=== PATIENT | male | born 1945 | race Caucasian/White ===

== ENCOUNTER 2019-03-27 02:32 | Outpatient (CLI) | payer MEDICARE, OTHER ==
[~2019-03-27 02:32] MED LIST: ALLO100T PO; COU5T PO; DILT240C90 PO; LISI10TA4 PO; METF1000 PO; MULT-1141 PO; WARF2.5T82 PO; [UNRECOGNIZED DRUG - OTHER] TP
== END 2019-03-27 23:59 | disposition home or self-care (01) ==
LOC: DIABETIC 02:32
PROVIDERS: ATTEND Nurse Practitioner Family
DX: E11.9 Type 2 diabetes mellitus without complications (principal); Z79.84 Long term (current) use of oral hypoglycemic drugs
CPT/HCPCS: G0108

== ENCOUNTER 2019-05-21 04:17 | Outpatient (CLI) | payer MEDICARE, OTHER | END 2019-05-21 23:59 | disposition home or self-care (01) | LOC: DIABETIC 04:17 | PROVIDERS: ATTEND Nurse Practitioner Family | DX: E11.9 Type 2 diabetes mellitus without complications (principal); E66.9 Obesity, unspecified; E11.40 Type 2 diabetes mellitus with diabetic neuropathy, unspecified; G47.33 Obstructive sleep apnea (adult) (pediatric) | CPT/HCPCS: G0108 ==

== ENCOUNTER 2021-02-10 04:37 | Inpatient (IN) | payer MEDICARE, OTHER ==
[~2021-02-10] VITALS: Ht 182.9 cm; Wt 105.0 kg
[~2021-02-10 04:37] MED LIST changes: -COU5T PO; +FLO0.4C PO; +HYDR12.55 PO; +LISI10TA27 PO; -LISI10TA4 PO; -MULT-1141 PO; +WARF-113 PO; -WARF2.5T82 PO
[2021-02-10] MEDS ORDERED: iohexol 350MG/ML 100ml bottle IV ONE (05:53)
[2021-02-10] MEDS ORDERED: HYDROmorphone 1 mg/ml syringe IV ONE ×4 (05:55→08:30)
[2021-02-10 06:14] LABS: ALBUMIN 3.6 G/DL (3.4-5.0); ANION GAP 14 (8-16); BLOOD UREA NITROGEN 26 MG/DL (7-18); CALCIUM 9.4 MG/DL (8.5-10.1); CHLORIDE 105 MMOL/L (99-107); CREATININE 0.84 MG/DL (0.60-1.10); GLUCOSE 158 MG/DL (70-104); POTASSIUM 3.6 MMOL/L (3.5-5.1); SODIUM 142 MMOL/L (135-145); TOTAL CARBON DIOXIDE 23.1 MMOL/L (24-32); eGFR 89 ML/MIN
[2021-02-10 06:17] LABS: BASOPHILS % (AUTO) 0.3 % (0-1); EOSINOPHILS % (AUTO) 0.2 % (0-6); HEMATOCRIT 45.3 % (42.0-52.0); LYMPHOCYTES # (AUTO) 0.9 X10'3 (1.1-4.8); LYMPHOCYTES % (AUTO) 6.3 % (21-51); MEAN CORPUSCULAR VOLUME 87.8 FL (78-98); MEAN PLATELET VOLUME 8.9 FL (7.4-10.4); MONOCYTES # (AUTO) 1.1 X10'3 (0-0.9); MONOCYTES % (AUTO) 7.6 % (2-12); NEUTROPHILS # (AUTO) 12.7 X10'3 (1.8-7.7); NEUTROPHILS % (AUTO) 85.6 % (42-75); PARTIAL THROMBOPLASTIN TIME 25 SECONDS (22-32); PLATELET COUNT 192 X10'3 (140-440); RED BLOOD COUNT 5.16 X10'6 (4.70-6.10); RED CELL DISTRIBUTION WIDTH 16.3 % (11.5-14.5); WHITE BLOOD COUNT 14.9 X10'3 (4.5-11.0)
[2021-02-10] MEDS: MESSAGE TO NURSING PO NR ×2 (07:49→10:26)
[2021-02-10 08:21] LABS: CLARITY,URINE CLOUDY (Clear); COLOR,URINE YELLOW (Yellow); GLUCOSE, URINE NEGATIVE (Neg); KETONES,URINE TRACE mg/dl (Neg); LEUKOCYTE ESTERASE ,URINE SMALL (Neg); NITRITES, URINE NEGATIVE (Neg); OCCULT BLOOD,URINE SMALL (Neg); PROTEIN,URINE NEGATIVE (Neg); UROBILINOGEN,URINE 0.2 E.U/dL (0.2-1.0)
[2021-02-10 08:24] LABS: UA COLLECTION TYPE CLN CATCH MIDSTREAM
[2021-02-10 08:27] LABS: BACTERIA,URINE 1+ /HPF (Neg); MUCUS STRANDS FEW /LPF (Neg); SQUAMOUS EPITHELIAL CELL,UR FEW /LPF (FEW); TRANSITIONAL EPI CELLS,URINE FEW /HPF
[2021-02-10 08:28] LABS: WBC,URINE TNTC /HPF (0-4)
[2021-02-10 08:36] LABS: WBC CLUMPS,URINE FEW /HPF (NEGATIVE)
[2021-02-10] MEDS ORDERED: LORazepam 2 mg/ml vial IV ONE (08:40)
[2021-02-10] MEDS ORDERED: CefTRIAXone 2gm/D5W 50ml BAG 50 ML IV ONE (09:50)
[2021-02-10] MEDS ORDERED: ketorolac trometh. 30mg/ml inj. IV ONE (09:50)
--- NOTE | 2021-02-10 10:35 | NUR ---
Pt taken to MRI.
[2021-02-10] MEDS ORDERED: dexamethasone sod phosphate 10mg/ml inj IM STA ×2 (12:06→13:26)
[2021-02-10] MEDS ORDERED: TRAM50TA2 PO (12:29)
[2021-02-10] MEDS ORDERED: METF-438 PO (12:29)
[2021-02-10] MEDS ORDERED: DILT240C92 PO (12:29)
[2021-02-10] MEDS ORDERED: ALLO300T8 PO (12:29)
[2021-02-10] MEDS ORDERED: GADOTERATE MEGLUMINE 7.5 MMOL/15 ML VIAL IV ONE (14:07)
[2021-02-10] MEDS ORDERED: traMADol 50MG tablet PO PRN (14:25)
[2021-02-10] MEDS ORDERED: acetaminophen 325mg tablet PO PRN ×2 (14:30)
[2021-02-10] MEDS ORDERED: glucagon, human recombinant 1mg kit SUBCUT PRN (14:30)
[2021-02-10] MEDS ORDERED: dextrose 50%-water 50ml dispensing syringe IV PRN ×2 (14:30)
[2021-02-10] MEDS ORDERED: HYDROcodone/acetaminophen 10/325mg tab PO PRN (14:30)
[2021-02-10] MEDS ORDERED: MESSAGE TO PHARMACY PO ONE (14:30)
[2021-02-10] MEDS ORDERED: dextrose ORAL solution 15 GM/59 ML bottle PO PRN ×2 (14:30)
[2021-02-10] MEDS ORDERED: bisacodyl 10mg suppository rectal RC PRN (14:30)
[2021-02-10] MEDS ORDERED: morphine 2 MG/ML inj. syringe IV PRN (14:30)
[2021-02-10] MEDS ORDERED: mag hydrox/Alum hydrox/simeth 30ml oral suspension PO PRN (14:30)
[2021-02-10] MEDS ORDERED: ondansetron/PF 4mg/2ml inj IV PRN (14:30)
[2021-02-10] MEDS ORDERED: magnesium hydroxide 30ml (MOM) UD suspension PO PRN (14:30)
[2021-02-10] MEDS ORDERED: insulin Lispro (HumaLOG) vial - multi-dose SQ SCH (14:30)
[2021-02-10 14:57] LABS: HEMOGLOBIN A1C 6.5 % (4.5-6.2)
[2021-02-10] MEDS ORDERED: predniSONE 20 mg tablet PO SCH (17:40)
[2021-02-10] MEDS: insulin glargine (Lantus) pen - multi-dose SQ SCH (21:00)
[2021-02-10] MEDS ORDERED: warfarin 5mg tablet PO ONE (21:00)
[2021-02-10] MEDS: docusate sod 100mg capsule PO SCH (22:34)
[2021-02-10] MEDS: enoxaparin 100mg/ml syringe SUBCUT SCH (22:35)
[2021-02-10 23:54] VITALS: BP 177/99
--- NOTE | 2021-02-11 05:39 | NUR ---
patient has refused insulin overnight despite blood sugars of 223 and 182. Patient takes metformin at home and does not want to initiate insulin if discharging soon and reinitiating metformin after imaging with contrast. Educated patient regarding blood sugars, blood sugar treatments, and diet expectations.
[2021-02-11 06:10] LABS: BASOPHILS % (AUTO) 0.3 % (0-1); EOSINOPHILS % (AUTO) 0 % (0-6); HEMATOCRIT 46.4 % (42.0-52.0); HEMOGLOBIN 15.2 g/dl (14.0-17.9); LYMPHOCYTES # (AUTO) 0.7 X10'3 (1.1-4.8); LYMPHOCYTES % (AUTO) 4.7 % (21-51); MEAN CORPUSCULAR HEMOGLOBIN 29.1 PG (27.0-31.0); MEAN CORPUSCULAR HGB CONC 32.8 g/dL (33.0-36.5); MEAN CORPUSCULAR VOLUME 88.6 FL (78-98); MEAN PLATELET VOLUME 9.5 FL (7.4-10.4); MONOCYTES # (AUTO) 1.5 X10'3 (0-0.9); MONOCYTES % (AUTO) 9.6 % (2-12); NEUTROPHILS % (AUTO) 85.4 % (42-75); PLATELET COUNT 193 X10'3 (140-440); RED BLOOD COUNT 5.23 X10'6 (4.70-6.10); WHITE BLOOD COUNT 15.2 X10'3 (4.5-11.0)
--- NOTE | 2021-02-11 06:10 | NUR ---
Problems reprioritized. Patient report given, questions answered & plan of care reviewed with Erwin CARRILLO.
--- NOTE | 2021-02-11 06:18 | NUR ---
Patient in room [facility]. I have received report from Hira CARRILLO and had the opportunity to ask questions and assume patient care.
[2021-02-11] MEDS: morphine 2 MG/ML inj. syringe IV PRN ×2 (06:28→15:03)
[2021-02-11 06:36] LABS: ALBUMIN 3.4 G/DL (3.4-5.0); ANION GAP 11 (8-16); BLOOD UREA NITROGEN 17 MG/DL (7-18); BUN/CREATININE RATIO 21.8 (5.4-32.0); CALCIUM 10.1 MG/DL (8.5-10.1); CHLORIDE 105 MMOL/L (99-107); CREATININE 0.78 MG/DL (0.60-1.10); GLUCOSE 165 MG/DL (70-104); POTASSIUM 3.5 MMOL/L (3.5-5.1); SODIUM 139 MMOL/L (135-145); TOTAL CARBON DIOXIDE 23.2 MMOL/L (24-32); eGFR > 90 ML/MIN
[2021-02-11 07:00] VITALS: BP_SYST 130; BP_SYST 148; BP_DIAS 75; BP_DIAS 83
--- NOTE | 2021-02-11 07:00 | NUR ---
SN reported that patient's morning blood sugar was 166 mg/dl. Patient refused any insulin coverage when I asked him during my rounds to confirm this.
[2021-02-11] MEDS ORDERED: enoxaparin 40mg/0.4ml syringe SUBCUT SCH (08:00)
[2021-02-11] MEDS: diltiazem CD 120mg capsule (once-daily) PO SCH (08:21)
[2021-02-11] MEDS: docusate sod 100mg capsule PO SCH ×2 (08:22→21:45)
[2021-02-11] MEDS: predniSONE 20 mg tablet PO SCH (08:25)
[2021-02-11] MEDS: tamsulosin 0.4mg capsule PO SCH (08:26)
[2021-02-11] MEDS: allopurinol 300 MG tablet PO SCH (08:27)
[2021-02-11] MEDS: enoxaparin 100mg/ml syringe SUBCUT SCH ×2 (08:32→21:44)
--- NOTE | 2021-02-11 10:22 | NUR ---
Dr. Pham was notified that patient has been refusing insulin. He said that' fine
[2021-02-11] MEDS: MESSAGE TO NURSING PO NR (10:23)
[2021-02-11 11:00] VITALS: BP 140/87
[2021-02-11] MEDS: HYDROcodone/acetaminophen 5mg/325mg tablet PO PRN ×2 (17:17→17:18)
--- NOTE | 2021-02-11 18:24 | NUR ---
Patient in room [facility]. I have received report from Erwin CARRILLO and had the opportunity to ask questions and assume patient care.
[2021-02-11 19:23] VITALS: BP 150/92
[2021-02-11] MEDS: insulin glargine (Lantus) pen - multi-dose SQ SCH (21:00)
[2021-02-11] MEDS ORDERED: warfarin 5mg tablet PO ONE (21:00)
[2021-02-12 00:09] VITALS: BP 143/84
[2021-02-12 06:46] LABS: BASOPHILS # (AUTO) 0.1 X10'3 (0-0.2); BASOPHILS % (AUTO) 0.5 % (0-1); EOSINOPHILS % (AUTO) 0.1 % (0-6); HEMOGLOBIN 15.2 g/dl (14.0-17.9); LYMPHOCYTES # (AUTO) 1.7 X10'3 (1.1-4.8); LYMPHOCYTES % (AUTO) 13.5 % (21-51); MEAN CORPUSCULAR HEMOGLOBIN 29.1 PG (27.0-31.0); MEAN CORPUSCULAR VOLUME 88.1 FL (78-98); MEAN PLATELET VOLUME 9.8 FL (7.4-10.4); MONOCYTES % (AUTO) 15.5 % (2-12); NEUTROPHILS # (AUTO) 8.9 X10'3 (1.8-7.7); NEUTROPHILS % (AUTO) 70.4 % (42-75); PLATELET COUNT 184 X10'3 (140-440); RED BLOOD COUNT 5.22 X10'6 (4.70-6.10); WHITE BLOOD COUNT 12.7 X10'3 (4.5-11.0)
--- NOTE | 2021-02-12 06:48 | NUR ---
Problems reprioritized. Patient report given, questions answered & plan of care reviewed with Alyse CARRILLO.
--- NOTE | 2021-02-12 06:52 | NUR ---
Patient in room [facility] 347B. I have received report from GERARDO DIOP and had the opportunity to ask questions and assume patient care.
[2021-02-12 06:54] LABS: ALBUMIN 3.2 G/DL (3.4-5.0); ANION GAP 9 (8-16); BLOOD UREA NITROGEN 21 MG/DL (7-18); BUN/CREATININE RATIO 24.7 (5.4-32.0); CALCIUM 9.7 MG/DL (8.5-10.1); CHLORIDE 104 MMOL/L (99-107); CREATININE 0.85 MG/DL (0.60-1.10); GLUCOSE 132 MG/DL (70-104); POTASSIUM 3.6 MMOL/L (3.5-5.1); SODIUM 139 MMOL/L (135-145); TOTAL CARBON DIOXIDE 26.3 MMOL/L (24-32); eGFR 87 ML/MIN
[2021-02-12 07:00] VITALS: BP 162/94
[2021-02-12] MEDS ORDERED: metFORMIN 500mg tablet PO SCH (08:00)
[2021-02-12] MEDS: allopurinol 300 MG tablet PO SCH (09:10)
[2021-02-12] MEDS: predniSONE 20 mg tablet PO SCH (09:10)
[2021-02-12] MEDS: docusate sod 100mg capsule PO SCH (09:11)
[2021-02-12] MEDS: diltiazem CD 120mg capsule (once-daily) PO SCH (09:11)
[2021-02-12] MEDS: tamsulosin 0.4mg capsule PO SCH (09:11)
[2021-02-12] MEDS: enoxaparin 100mg/ml syringe SUBCUT SCH (09:12)
[2021-02-12] MEDS ORDERED: DOCU-148 PO (10:05)
[2021-02-12] MEDS ORDERED: HYDR-3965 PO (10:05)
[2021-02-12 11:00] VITALS: BP 174/119
[2021-02-12 12:21] VITALS: BP 165/94
[2021-02-12] MEDS ORDERED: SULF1TAB49 PO (12:25)
--- NOTE | 2021-02-12 13:40 | NUR ---
PATIENT STABLE AND APPROPRIATE FOR DISCHARGE, IV TAKEN OUT, EDUCATION GIVEN, NEW MEDS E-SCRIPTED TO PREFERRED PHARMACY, ALL BELONGINGS SENT WITH PATIENT, PATIENT TAKEN TO LOBBY BY WHEELCHAIR TO AN AWAITING CAR WHERE WILL TAKE PATIENT HOME
== END 2021-02-12 13:40 | disposition home health service (06) | DRG 99 ==
LOC: ER 04:38 → ED HOLD 14:32 → SUR 3N 19:07
PROVIDERS: ADMIT Internal Medicine; ATTEND Internal Medicine
PROC: BR271ZZ Computerized Tomography (CT Scan) of Thoracic Spine using Low Osmolar Contrast (ICD-10-PCS; principal; 2021-02-10)
PROC: BR291ZZ Computerized Tomography (CT Scan) of Lumbar Spine using Low Osmolar Contrast (ICD-10-PCS; 2021-02-10)
DX: G03.9 Meningitis, unspecified (principal); M51.36 Other intervertebral disc degeneration, lumbar region; E11.9 Type 2 diabetes mellitus without complications; I48.91 Unspecified atrial fibrillation; I10 Essential (primary) hypertension; G47.30 Sleep apnea, unspecified; N40.0 Benign prostatic hyperplasia without lower urinary tract symptoms; M51.37 Other intervertebral disc degeneration, lumbosacral region; M10.9 Gout, unspecified; Z79.899 Other long term (current) drug therapy; Z83.3 Family history of diabetes mellitus; Z95.2 Presence of prosthetic heart valve; Z90.49 Acquired absence of other specified parts of digestive tract; Z82.49 Family history of ischemic heart disease and other diseases of the circulatory system; Z79.01 Long term (current) use of anticoagulants
CPT/HCPCS: 36415; 72129; 72131; 72132; 72158; 80048; 81001; 82948; 83036; 85025; 85610; 85730; 87077; 87081; 87088; 87186; 96365; 96372; 96375; 97116; 97161; 97530; 99285; A9575; G0378; J0696; J1100; J1170; J1650; J1815; J1885; J2060; J2270; J7512; Q9966; Q9967

== ENCOUNTER 2023-04-13 10:33 | Emergency (ER) | payer MEDICARE, OTHER ==
[~2023-04-13] VITALS: Ht 180.3 cm; Wt 112.8 kg
[~2023-04-13 10:33] MED LIST changes: -ALLO100T PO; +ALLO300T8 PO; +DILT240C78 PO; -DILT240C90 PO; +DOCU-148 PO; -HYDR12.55 PO; -LISI10TA27 PO; +METF-438 PO; -METF1000 PO; +TRAM50TA2 PO; -[UNRECOGNIZED DRUG - OTHER] TP
[2023-04-13] MEDS ORDERED: NEOM10DR45 EACH EAR (12:11)
[2023-04-13] MEDS ORDERED: LEVO-65 PO (12:11)
[2023-04-13 12:31] VITALS: BP 162/78; PULSE 89; RESP 17; TEMP 98.2; O2SAT 99
== END 2023-04-13 12:33 | disposition home or self-care (01) ==
LOC: ER 10:34
DX: H60.93 Unspecified otitis externa, bilateral (principal); I11.0 Hypertensive heart disease with heart failure; Z90.49 Acquired absence of other specified parts of digestive tract; Z79.899 Other long term (current) drug therapy
CPT/HCPCS: 99283